=== PATIENT | female | born 1965 | race Hispanic/Latino ===

== ENCOUNTER 2020-10-07 11:00 | Outpatient (CLI) | payer MEDICARE, MEDICAID | END 2020-10-07 11:01 | disposition home or self-care (01) | LOC: CSHULT 11:00 | PROVIDERS: ATTEND Nurse Practitioner Family | DX: R79.89 Other specified abnormal findings of blood chemistry (principal); K76.0 Fatty (change of) liver, not elsewhere classified; Z90.49 Acquired absence of other specified parts of digestive tract | CPT/HCPCS: 93975 ==

== ENCOUNTER 2021-10-05 08:40 | Outpatient (CLI) | payer MEDICARE, MEDICAID ==
[2021-10-05 10:15] LABS: Estimated GFR-MDRD - POC Greater than 90
[2021-10-05] MEDS ORDERED: Iopamidol 300 61% 100 ML VIAL FS ONE (10:34)
== END 2021-10-05 08:41 | disposition home or self-care (01) ==
LOC: CSHCT 08:40
PROVIDERS: ATTEND Internal Medicine Gastroenterology
DX: R10.13 Epigastric pain (principal); M54.2 Cervicalgia; Z98.84 Bariatric surgery status; K44.9 Diaphragmatic hernia without obstruction or gangrene; K43.9 Ventral hernia without obstruction or gangrene; K76.0 Fatty (change of) liver, not elsewhere classified
CPT/HCPCS: 74160; 82565

== ENCOUNTER 2024-01-30 12:35 | Outpatient (CLI) | payer OTHER, MEDICAID | END 2024-01-30 12:36 | disposition home or self-care (01) | LOC: CSHWCC 12:35 | PROVIDERS: ATTEND Nurse Practitioner Family | DX: T81.32XD Disruption of internal operation (surgical) wound, not elsewhere classified, subsequent encounter (principal); E11.622 Type 2 diabetes mellitus with other skin ulcer; L98.499 Non-pressure chronic ulcer of skin of other sites with unspecified severity | CPT/HCPCS: 11042; 99214; G0463 ==

== ENCOUNTER 2024-02-02 12:42 | Outpatient (CLI) | payer OTHER, MEDICAID | END 2024-02-02 12:43 | disposition home or self-care (01) | LOC: CSHWCC 12:42 | PROVIDERS: ATTEND Nurse Practitioner Family | DX: T81.32XD Disruption of internal operation (surgical) wound, not elsewhere classified, subsequent encounter (principal); E11.622 Type 2 diabetes mellitus with other skin ulcer; L98.499 Non-pressure chronic ulcer of skin of other sites with unspecified severity | CPT/HCPCS: 99211; G0463 ==

== ENCOUNTER 2024-02-05 13:57 | Outpatient (CLI) | payer OTHER, MEDICAID | END 2024-02-05 13:58 | disposition home or self-care (01) | LOC: CSHWCC 13:57 | PROVIDERS: ATTEND Nurse Practitioner Family | DX: T81.32XD Disruption of internal operation (surgical) wound, not elsewhere classified, subsequent encounter (principal); E11.622 Type 2 diabetes mellitus with other skin ulcer; L98.499 Non-pressure chronic ulcer of skin of other sites with unspecified severity | CPT/HCPCS: 11042 ==

== ENCOUNTER 2024-03-04 10:51 | Outpatient (CLI) | payer OTHER, MEDICARE | END 2024-03-04 10:52 | disposition home or self-care (01) | LOC: CSHWCC 10:51 | PROVIDERS: ATTEND Nurse Practitioner Family | DX: T81.32XD Disruption of internal operation (surgical) wound, not elsewhere classified, subsequent encounter (principal); E11.622 Type 2 diabetes mellitus with other skin ulcer; L98.499 Non-pressure chronic ulcer of skin of other sites with unspecified severity | CPT/HCPCS: 11042 ==

== ENCOUNTER 2024-03-11 11:33 | Outpatient (CLI) | payer OTHER, MEDICAID | END 2024-03-11 11:34 | disposition home or self-care (01) | LOC: CSHWCC 11:33 | PROVIDERS: ATTEND Nurse Practitioner Family | DX: T81.32XD Disruption of internal operation (surgical) wound, not elsewhere classified, subsequent encounter (principal); E11.622 Type 2 diabetes mellitus with other skin ulcer; L98.499 Non-pressure chronic ulcer of skin of other sites with unspecified severity | CPT/HCPCS: 11042 ==

== ENCOUNTER 2024-03-18 10:00 | Outpatient (CLI) | payer OTHER, MEDICAID | END 2024-03-18 10:01 | disposition home or self-care (01) | LOC: CSHWCC 10:00 | PROVIDERS: ATTEND Nurse Practitioner Family | DX: T81.329D Deep disruption or dehiscence of operation wound, unspecified, subsequent encounter (principal); E11.622 Type 2 diabetes mellitus with other skin ulcer; L98.499 Non-pressure chronic ulcer of skin of other sites with unspecified severity | CPT/HCPCS: 99212; G0463 ==